=== PATIENT | female | born 1995 | race Caucasian/White ===

== ENCOUNTER 2018-04-13 12:47 | Outpatient (CLI) | payer OTHER ==
--- NOTE | 2018-04-22 13:43 | OP Clinic Progress Note ---
SUBJECTIVE: Urszula Easton is a 23-year-old female who presented today with ingrown toenails on both sides of her right great toenail. She states that she has had them since about December and it began on the medial side but progressed to the lateral side, which seems to be worse at this time. She admits drainage at times as well and overall pain and discomfort. 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 The patient denies any known allergies at this time. The patient does not admit to any fevers, chills, nausea, vomiting, shortness of breath or chest pain at this time. She states that she would like to have this addressed today and would rather have the entire toenail removed as opposed to 2 small portions. OBJECTIVE: VITAL SIGNS: BP: 143/71, upon questioning the patient, she states that she is nervous today. We will evaluate this more at a future visit if it is still high. Heart rate: 101, R: 14, T: 98.5 degrees Fahrenheit, oxygen saturation is 97% on room air. VASCULAR: DP and PT pulses of the right foot are at 2+. Capillary refill time is less than 3 seconds to the toes of the right foot. There is mild edema noted more so on the lateral aspect of the right great toenail area. No other edema or issues. DERMATOLOGIC: There is obvious slight rubor/discoloration from irritation from an ingrown toenail medially and laterally, but more so laterally on the right great toenail. There is no obvious ascending erythema, which would be a sign of cellulitis. There is no obvious notable drainage at this time upon visual exam, but there has been some in her socks today. There is no malodor or purulence noted. MUSCULOSKELETAL: Pain on palpation noted along the medial and lateral aspects of the right great toenail. No other gross abnormalities noted. NEUROLOGIC: Light touch sensation is intact to the toes of the right foot. ASSESSMENT: Onychocryptosis at medial and lateral borders of the right great toenail. PROCEDURE #1: Right great toenail total nail avulsion. DESCRIPTION OF PROCEDURE: Risks and benefits of an outpatient procedure in the office today for a right complete/total toenail avulsion of the right great toenail were discussed. Bleeding, infection, etc. were discussed and the patient understood the risks and benefits and agreed by both written and verbal consent to go forward with the procedure today to remove the entire great toenail. The patient understood we could remove a small medial and lateral portion leaving the center, but she elected to go forward with removing the entire toenail today. This is her first time having a procedure done for this and it was determined to try this at this time and if it does return, that we will consider a more permanent procedure at that time. The patient agrees with this plan. The right great toe was swabbed with an alcohol swab and injected with 6 mL of a 1:1 mix of 2% Lidocaine plain and 0.5% bupivacaine plain. The right great toe was then cleaned with iodine and checked for anesthesia which was obtained. At this time, the right great toenail was then avulsed in its entirety. A small amount of granuloma on the lateral border was removed as well and pressure and a small amount of silver nitrate was applied for about 1 second to help with hemostasis. The site was flushed with a copious amount of normal saline. Triple antibiotic ointment and 4 x 4 gauze, 2-inch Ervin, and 1-inch Coban were then applied beginning at the toe and ending on the distal forefoot of the right foot. The patient tolerated the procedure well. PLAN: The patient was given instructions regarding washing the toe last after a shower, as well as washing the toe first before soaking it in Epson Salt soaks to try and help with healing. The patient understands these things and knows to schedule to see me next week on Friday morning in the outpatient clinic as there is a slight schedule change that day. The patient had no further questions or concerns at this time and tolerated the procedure beautifully. Return to clinic in 1 week. cc: Dr. Tamara KOWALSKI
== END 2018-04-13 12:50 ==
LOC: POD 12:47
PROVIDERS: ATTEND Podiatrist Foot & Ankle Surgery
DX: L60.0 Ingrowing nail (principal)
CPT/HCPCS: 11730; J2001; J3490

== ENCOUNTER 2018-04-20 08:57 | Outpatient (CLI) | payer OTHER ==
--- NOTE | 2018-04-30 08:59 | OP Clinic Progress Note ---
SUBJECTIVE: Urszula Easton is a 23-year-old female who presented today for follow up of right great toenail total nail avulsion, temporary. The patient states that she has done well and is using antibiotic ointment and a Band-Aid daily. She does not admit to any fevers, chills, nausea, vomiting, shortness of breath or chest pain at this time. She states that a little bit of slough from the toenail bed has kind of removed on its own. She does not report any abnormal drainage or malodor. OBJECTIVE: VITAL SIGNS: T: 98.4 degrees Fahrenheit, heart rate 88, R: 14, BP: 124/77, oxygen saturation is 98%. VASCULAR: DP and PT pulses are 2+ of the right foot. Capillary refill time was less then 3 seconds to the toes of the right foot. Mild edema perhaps to the right great toe. DERMATOLOGIC: There is mild wetness and fibrous slough noted in the nail bed of the right great toenail area. There is no malodor or purulence noted. The slough was debrided with gauze and a #15 blade carefully and without any problems. This was removed to a nice clean wound bed. This is granular and looks healthy in appearance. There is mild, very mild maceration noted to the right medial great toe and the patient was encouraged to limit how much antibiotic ointment she is using, as she states she "cakes it on." MUSCULOSKELETAL: There is no pain on palpation noted to the right great toe. No gross abnormalities noted. NEUROLOGIC: Light touch sensation is intact to the toes of the right foot. ASSESSMENT: 1. Right great toenail onychocryptosis. 2. Status post right great toenail removal. 3. Healing wound. PLAN: Antibiotic and a Band-Aid were applied today. She will continue doing this for 1 week and then switch to just a Band-Aid for 1 week. There was no procedure performed today that we will charge form. Return to the [facility] in 2 weeks for follow up. If there are any concerns, the patient may notify her primary care provider or come to the ER. I am out of town this next week, so we will see her in 2 weeks. cc: Dr. Tamara KOWALSKI
== END 2018-04-20 09:02 | disposition home or self-care (01) ==
LOC: POD 08:57
PROVIDERS: ATTEND Podiatrist Foot & Ankle Surgery
DX: Z98.890 Other specified postprocedural states (principal); L60.0 Ingrowing nail